=== PATIENT | female | born 1955 | race Caucasian/White ===

== ENCOUNTER → 2018-08-06 | Outpatient (REF) | payer MEDICARE ==
[2018-08-08 00:08] LABS: Lyme Disease IgG/IgM Antibodie <0.91 ISR (0.00-0.90); Lyme Disease IgM Ab Quantitati <0.80 index (0.00-0.79)
== END ==
LOC: M LAB REF 12:15
DX: Z11.59 Encounter for screening for other viral diseases (principal)
CPT/HCPCS: 86617

== ENCOUNTER → 2018-12-23 | Outpatient (REF) | payer MEDICARE ==
[2018-12-26 00:06] LABS: Lyme Disease IgG/IgM Antibodie <0.91 ISR (0.00-0.90); Lyme Disease IgM Ab Quantitati <0.80 index (0.00-0.79)
== END ==
LOC: M LAB REF 16:43
PROVIDERS: ATTEND Family Medicine
DX: R74.0 Nonspecific elevation of levels of transaminase and lactic acid dehydrogenase [LDH] (principal); Z11.59 Encounter for screening for other viral diseases

== ENCOUNTER 2019-03-03 07:46 | Day surgery (SDC) | payer MEDICARE ==
[~2019-03-03] VITALS: Ht 170.2 cm; Wt 82.7 kg
[~2019-03-03 07:46] MED LIST: EZET10TA21 PO; GLIP5TAB20 PO; HYDR12CA PO; METF10004 PO; NS 1,000 ML IV ONE; RAMI1CAP26 PO; TRUL10IN SC
[2019-03-03] MEDS ORDERED: PROPOFOL 200 MG/20 ML VIAL As Ordered ONE ×2 (09:25→09:40)
[2019-03-03] MEDS ORDERED: LIDOCAINE 2% INJ 100 MG/5 ML SDV (FOR ANES.) As Ordered ONE (09:25)
--- NOTE | 2019-03-03 09:49 | ROOR ---
Patient Name: Gianna Castellano Procedure Date: 03/03/2019 9:27 AM Date of : 1955 Age: 63 Room: [facility] Gender: Female Note Status: Finalized Procedure: Total Colonoscopy to Cecum Indications: Screening in patient at increased risk: Colorectal cancer in mother before age 60 Providers: Filippo Marie MD Referring MD: Rudi Reyes MD Requesting Provider: Medicines: Monitored Anesthesia Care Complications: No immediate complications. Procedure: Pre-Anesthesia Assessment: - The heart rate, respiratory rate, oxygen saturations, blood pressure, adequacy of pulmonary ventilation, and response to care were monitored throughout the procedure. The Colonoscope was introduced through the anus and advanced to the cecum, identified by appendiceal orifice and ileocecal valve. The colonoscopy was performed without difficulty. The patient tolerated the procedure well. The quality of the bowel preparation was excellent. Findings: The perianal and digital rectal examinations were normal. Non-bleeding internal hemorrhoids were found during retroflexion. The hemorrhoids were small and Grade I (internal hemorrhoids that do not prolapse). No other significant abnormalities were identified in a careful examination of the remainder of the colon. The exam was otherwise without abnormality on direct and retroflexion views. Impression: - Non-bleeding internal hemorrhoids. - The examination was otherwise normal on direct and retroflexion views. - No specimens collected. - The exam was otherwise normal to the cecum. Recommendation: - Patient has a contact number available for emergencies. The signs and symptoms of potential delayed complications were discussed with the patient. Return to normal activities tomorrow. Written discharge instructions were provided to the patient. - High fiber diet. - Discharge patient to home. - Continue present medications. - Repeat colonoscopy in 5 years for screening purposes. - Return to referring physician. - The findings and recommendations were discussed with the patient's family. Filippo Marie MD Filippo Marie MD 03/03/2019 9:49:28 AM Electronically signed by Filippo Marie MD Number of Addenda: 0 Note Initiated On: 03/03/2019 9:27 AM Estimated Blood Loss: Estimated blood loss: none.
[2019-03-03 10:10] VITALS: BP 143/77
== END 2019-03-03 10:18 | disposition home or self-care (01) ==
LOC: M OPP 07:46
PROVIDERS: ATTEND Internal Medicine Gastroenterology
DX: K64.0 First degree hemorrhoids (principal); Z79.4 Long term (current) use of insulin; Z79.899 Other long term (current) drug therapy; Z12.11 Encounter for screening for malignant neoplasm of colon; A80 Acute poliomyelitis

== ENCOUNTER → 2019-07-20 | Outpatient (CLI) | payer MEDICARE ==
[~2019-07-20] MED LIST changes: +GASTROGRAFIN SOLUTION 30ML (Q9963) As Ordered ONE; +ISOVUE-370 76% 100ML VIAL (Q9967) As Ordered ONE; -NS 1,000 ML IV ONE
[2019-07-20 12:54] LABS: BASO % 0.2 % (0.0-1.0); EOS % 0.5 % (0.0-3.0); HEMATOCRIT 37.2 % (36.0-47.0); LYMPH # 1.8 10^3/uL (1.5-5.0); LYMPH % 20.7 % (24.0-44.0); MEAN CORPUSCULAR HEMOGLOBIN 32.7 pg (27.0-33.0); MEAN CORPUSCULAR HGB CONC 34.9 g/dl (32.0-36.5); MEAN CORPUSCULAR VOLUME 93.5 fl (80.0-96.0); MONO # 0.7 10^3/uL (0.0-0.8); MONO % 7.7 % (0.0-5.0); NEUTROPHILS # 6.1 10^3/uL (1.5-8.5); NEUTROPHILS % 70.6 % (36.0-66.0); PLATELET COUNT, AUTOMATED 218 10^3/uL (150-450); RED BLOOD COUNT 3.98 10^6/uL (4.00-5.40); WHITE BLOOD COUNT 8.7 10^3/uL (4.0-10.0)
[2019-07-20 13:24] LABS: ALBUMIN 4.2 GM/DL (3.2-5.2); ALT/SGPT 51 U/L (12-78); BILIRUBIN,TOTAL 0.6 MG/DL (0.2-1.0); BLOOD UREA NITROGEN 17 MG/DL (7-18); CARBON DIOXIDE LEVEL 28 MEQ/L (21-32); CHLORIDE LEVEL 103 MEQ/L (98-107); CREATININE FOR GFR 0.81 MG/DL (0.55-1.30); GLOMERULAR FILTRATION RATE > 60.0 (>45); GLUCOSE, FASTING 108 MG/DL (70-100); LIPASE 519 U/L (73-393); SODIUM LEVEL 138 MEQ/L (136-145); TOTAL PROTEIN 8.1 GM/DL (6.4-8.2)
--- NOTE | 2019-07-20 14:40 | REP ---
Clinical: Right lower quadrant pain. Technique: Axial contrast enhanced images from the lung bases to the pubic symphysis using oral (per protocol) and 100 ml Isovue 370 intravenous contrast material with coronal and sagittal re-formations. Findings: Focal mucosal thickening of the mid sigmoid colon with surrounding inflammatory stranding centered at inflamed diverticulum is consistent with acute diverticulitis. No evidence for bowel obstruction. No perforation. No drainable collection/abscess. No ascites. Liver, spleen, pancreas, bilateral adrenal glands and kidneys are normal. Pelvis demonstrates partially collapsed bladder and evidence for prior hysterectomy. No ascites. No adenopathy. Abdominal aorta without aneurysm or dissection. Musculoskeletal structures are intact. Impression: Acute sigmoid diverticulitis. No associated bowel obstruction, perforation, or drainable collection/abscess. Electronically Signed by Alfredo Brower MD 07/20/2019 02:31 P
== END ==
LOC: M RAD 11:55
PROVIDERS: ATTEND Physician Assistant
DX: K57.30 Diverticulosis of large intestine without perforation or abscess without bleeding (principal)
CPT/HCPCS: 36415; 74177; 80053; 83690; 85025; Q9963; Q9967

== ENCOUNTER → 2020-07-10 | Outpatient (REF) | payer MEDICARE ==
[~2020-07-10] MED LIST changes: -GASTROGRAFIN SOLUTION 30ML (Q9963) As Ordered ONE; -ISOVUE-370 76% 100ML VIAL (Q9967) As Ordered ONE
== END ==
LOC: M LAB REF 16:15
PROVIDERS: ATTEND Family Medicine
DX: Z01.89 Encounter for other specified special examinations (principal); R94.5 Abnormal results of liver function studies

== ENCOUNTER 2020-08-04 22:50 | Emergency (ER) | payer MEDICARE ==
[~2020-08-04] VITALS: Ht 170.2 cm; Wt 86.3 kg
[2020-08-05] MEDS ORDERED: NS 1,000 ML IV ONE (01:00)
[2020-08-05] MEDS ORDERED: ONDANSETRON 4MG/2ML VIAL IV ONE (01:00)
[2020-08-05] MEDS ORDERED: KETOROLAC 30 MG/ML 1ML VIAL IV ONE (01:00)
[2020-08-05 01:06] LABS: BASO % 0.3 % (0.0-1.0); EOS # 0.1 10^3/uL (0.0-0.5); EOS % 1.6 % (0.0-3.0); HEMATOCRIT 36.7 % (36.0-47.0); HEMOGLOBIN 12.2 g/dl (12.0-15.5); LYMPH # 1.5 10^3/uL (1.5-5.0); LYMPH % 22.1 % (24.0-44.0); MEAN CORPUSCULAR HEMOGLOBIN 31.4 pg (27.0-33.0); MEAN CORPUSCULAR HGB CONC 33.2 g/dl (32.0-36.5); MEAN CORPUSCULAR VOLUME 94.3 fl (80.0-96.0); MONO # 0.6 10^3/uL (0.0-0.8); MONO % 8.3 % (0.0-5.0); NEUTROPHILS # 4.6 10^3/uL (1.5-8.5); NEUTROPHILS % 67.3 % (36.0-66.0); PLATELET COUNT, AUTOMATED 180 10^3/uL (150-450); RED BLOOD COUNT 3.89 10^6/uL (4.00-5.40); WHITE BLOOD COUNT 6.8 10^3/uL (4.0-10.0)
[2020-08-05 01:32] LABS: CALCIUM LEVEL 9.6 MG/DL (8.8-10.2); CREATININE FOR GFR 1.41 MG/DL (0.55-1.30); GLOMERULAR FILTRATION RATE 39.6 (>45); POTASSIUM SERUM 4.1 MEQ/L (3.5-5.1)
--- NOTE | 2020-08-05 01:46 | REPVR ---
PROCEDURE INFORMATION: Exam: CT Abdomen And Pelvis Without Contrast Exam date and time: 08/05/2020 12:47 AM Age: 65 years old Clinical indication: Abdominal pain; Flank; Left; Additional info: Left flank pain/hematuria TECHNIQUE: Imaging protocol: Computed tomography of the abdomen and pelvis without contrast. Radiation optimization: All CT scans at this facility use at least one of these dose optimization techniques: automated exposure control; mA and/or kV adjustment per patient size (includes targeted exams where dose is matched to clinical indication); or iterative reconstruction. COMPARISON: CT ABD PELVIS WITH CONTRAST 07/20/2019 2:23 PM FINDINGS: Liver: Hepatomegaly and steatosis. Gallbladder and bile ducts: Status post cholecystectomy. Pancreas: Normal. No ductal dilation. Spleen: Normal. No splenomegaly. Adrenal glands: Normal. No mass. Kidneys and ureters: Mild left hydroureteronephrosis to the level a 3 mm calculus in the distal left ureter with additional nonobstructing 2-3 mm calculus seen slightly more proximally. Nonspecific bilateral perinephric fat stranding. Punctate nonobstructing left renal calculus. Stomach and bowel: Unremarkable. No obstruction. No mucosal thickening. Appendix: No evidence of appendicitis. Intraperitoneal space: Unremarkable. No free air. No significant fluid collection. Vasculature: Mild atherosclerotic disease of the abdominal aorta. Lymph nodes: Unremarkable. No enlarged lymph nodes. Urinary bladder: Unremarkable as visualized. Reproductive: Status post hysterectomy. Bones/joints: Facet arthropathy the lower lumbar spine. Mild multilevel degenerative disease. Soft tissues: Bilateral fat containing umbilical hernias. IMPRESSION: Mild left hydroureteronephrosis to the level a 3 mm calculus in the distal left ureter with additional nonobstructing 2-3 mm calculus seen slightly more proximally. Electronically signed by: Rey Cm On 08/05/2020 01:45:47 AM
[2020-08-05] MEDS ORDERED: KETO10TAB PO (02:03)
[2020-08-05] MEDS ORDERED: FLOM0.4C39 PO (02:03)
[2020-08-05] MEDS ORDERED: TAMSULOSIN 0.4 MG CAP PO ONE (02:15)
[2020-08-05] MEDS ORDERED: NORCO 5/325MG TABLET (BULK FOR ED) PO ONE (02:15)
[2020-08-05 02:26] VITALS: BP 150/70
== END 2020-08-05 02:29 | disposition home or self-care (01) ==
LOC: M ED 22:50
DX: N20.1 Calculus of ureter (principal); E11.9 Type 2 diabetes mellitus without complications; I10 Essential (primary) hypertension; Z79.84 Long term (current) use of oral hypoglycemic drugs; Z79.899 Other long term (current) drug therapy
CPT/HCPCS: 74176; 80048; 81001; 85025; 96361; 96374; 96375; 99284; J1885; J2405

== ENCOUNTER → 2020-10-04 | Outpatient (REF) | payer MEDICARE ==
[~2020-10-04] MED LIST changes: +FLOM0.4C39 PO; +KETO10TAB PO
[2020-10-04 18:06] LABS: APPEARANCE, URINE HAZY (CLEAR); BACTERIA, URINE AUTO 1+ (NEGATIVE); BILIRUBIN, URINE AUTO NEGATIVE (NEGATIVE); BLOOD, URINE BLOOD NEGATIVE (NEGATIVE); COLOR, URINE AMBER (YELLOW); GLUCOSE, URINE (UA) AUTO 2+ mg/dL (NEGATIVE); KETONE, URINE AUTO TRACE mg/dL (NEGATIVE); LEUKOCYTE ESTERASE, URINE AUTO NEGATIVE (NEGATIVE); MUCUS, URINE SMALL (NEGATIVE); NITRITE, URINE AUTO NEGATIVE (NEGATIVE); PROTEIN, URINE AUTO 1+ mg/dL (NEGATIVE); RBC, URINE AUTO 1 /HPF (0-3); SPECIFIC GRAVITY URINE AUTO 1.024 (1.002-1.035); SQUAMOUS EPITHELIAL CELL UR AU 4 /HPF (0-6); UROBILINOGEN, URINE AUTO 0.2 mg/dL (0.0-2.0); WBC, URINE AUTO 4 /HPF (0-3)
== END ==
LOC: M SMT 17:02
PROVIDERS: ATTEND Nurse Practitioner Family
DX: N20.0 Calculus of kidney (principal)
CPT/HCPCS: 81001; 82365; 87086; G0463

== ENCOUNTER → 2020-12-11 | Outpatient (REF) | payer MEDICARE | LOC: M LAB REF 11:21 | PROVIDERS: ATTEND Family Medicine | DX: R74.01 Elevation of levels of liver transaminase levels (principal) ==

== ENCOUNTER → 2021-03-27 | Outpatient (CLI) | payer MEDICARE ==
--- NOTE | 2021-03-27 15:06 | REP ---
INDICATION: KIDNEY STONE. COMPARISON: Abdomen/pelvis CT without IV contrast dated 08/05/2020. TECHNIQUE: Multiple ultrasonographic images of the kidneys. FINDINGS: The right kidney measures 12.8 x 6.5 x 6.4 cm. The left kidney measures 11.4 x 5.8 x 6.6 cm. Echogenic parenchymal vessels are identified bilaterally. There is no hydronephrosis or hydroureter on the right or the left. There are no solid or cystic renal masses on the right or the left. There are small echogenic foci of bilaterally, nonspecific, vessel artifact versus tiny nonobstructive calculi. Bladder: A right ureteral jet is identified with color Doppler assessment. With color Doppler of the assessment we are unable to identify the left ureteral jet. On the sagittal images of the bladder there appears to be a 9.3 bladder wall polyp posteriorly on the left, versus and edematous distal left ureter. This could not be identified on the transverse images. Additionally, on the transverse images a small echogenic focus is noted within the left UVJ, possibly a tiny calculus. IMPRESSION: Bladder wall polyp posteriorly on the left as described versus edematous distal left ureter containing a small calculus in the left UVJ. No hydronephrosis or hydroureter on the right or the left. Otherwise, negative renal ultrasound. <Electronically signed by Ramón Shirley > 03/27/21 [id number]
== END ==
LOC: M RAD 12:57
PROVIDERS: ATTEND Nurse Practitioner Family
DX: N20.0 Calculus of kidney (principal)

== ENCOUNTER → 2021-04-03 | Outpatient (CLI) | payer MEDICARE ==
--- NOTE | 2021-04-03 12:56 | REPMRS ---
Patient History The patient states she has not had a clinical breast exam in over a year. Family history of colorectal cancer at age 55 in mother. Digital Woman Screen Mammo: April 03, 2021 - Exam #: [id number] Bilateral CC and MLO view(s) were taken. Technologist: Magdalena Rod Technologist Prior study comparison: December 25, 2018, bilateral digital mammo screening bilat, performed at [facility] [employer] [facility]. December 05, 2017, bilateral digital mammo screening bilat, performed at [facility]. February 08, 2014, left breast diagnostic unilateral mammo, performed at [facility]. February 01, 2014, bilateral digital mammo screening bilat, performed at [facility]. FINDINGS: There are scattered fibroglandular densities. The Volpara volumetric breast density category is:B. There has been no change in the appearance of the mammogram from the prior studies. There is a mild amount of scattered fibroglandular density which is fairly symmetric. There is no interval development of dominant mass, architectural distortion, or grouped microcalcification suggestive of malignancy. 3-D tomosynthesis shows no additional findings. Assessment: BI-RADS/ACR category 1 mammogram. Negative Mammogram. Recommendation Routine screening mammogram of both breasts in 1 year (for women over age 40). This patient's [facility] Lifetime Breast Cancer Risk is estimated at 4.7 %. This mammogram was interpreted with the aid of an FDA-approved computer-aided dectection system. Electronically Signed By: Donald Otoole MD 04/03/21 [id number]
== END ==
LOC: M WHC 06:55
PROVIDERS: ATTEND Family Medicine
DX: Z12.31 Encounter for screening mammogram for malignant neoplasm of breast (principal); Z80.0 Family history of malignant neoplasm of digestive organs

== ENCOUNTER → 2021-04-03 | Outpatient (REF) | payer MEDICARE ==
[2021-04-10 18:09] LABS: Ca Ox Monohydrate 10 % (.); Size 4x4 mm (.); Uric Acid 90 % (.)
== END ==
LOC: M SMT 16:55
PROVIDERS: ATTEND Nurse Practitioner Family
DX: Z12.31 Encounter for screening mammogram for malignant neoplasm of breast (principal); Z80.0 Family history of malignant neoplasm of digestive organs; N20.0 Calculus of kidney
CPT/HCPCS: 77063; 77067; 82365; G0463

== ENCOUNTER → 2021-04-10 | Outpatient (REF) | payer MEDICARE ==
[2021-04-10 13:34] LABS: AMORPHOUS SEDIMENT MODERATE (NEGATIVE); APPEARANCE, URINE TURBID (CLEAR); BACTERIA, URINE AUTO NEGATIVE (NEGATIVE); BILIRUBIN, URINE AUTO NEGATIVE (NEGATIVE); BLOOD, URINE BLOOD NEGATIVE (NEGATIVE); COLOR, URINE YELLOW (YELLOW); GLUCOSE, URINE (UA) AUTO 2+ mg/dL (NEGATIVE); KETONE, URINE AUTO TRACE mg/dL (NEGATIVE); LEUKOCYTE ESTERASE, URINE AUTO TRACE (NEGATIVE); NITRITE, URINE AUTO NEGATIVE (NEGATIVE); PROTEIN, URINE AUTO NEGATIVE (NEGATIVE); RBC, URINE AUTO 1 /HPF (0-3); SPECIFIC GRAVITY URINE AUTO 1.021 (1.002-1.035); SQUAMOUS EPITHELIAL CELL UR AU 4 /HPF (0-6); UROBILINOGEN, URINE AUTO 0.2 mg/dL (0.0-2.0); WBC, URINE AUTO 0 /HPF (0-3)
== END ==
LOC: M SMT 12:34
PROVIDERS: ATTEND Nurse Practitioner Family
DX: N20.0 Calculus of kidney (principal)

== ENCOUNTER → 2021-04-13 | Outpatient (REF) | payer MEDICARE | LOC: M LAB REF 11:46 | PROVIDERS: ATTEND Family Medicine | DX: I12.9 Hypertensive chronic kidney disease with stage 1 through stage 4 chronic kidney disease, or unspecified chronic kidney disease (principal) ==

== ENCOUNTER 2021-04-18 13:34 | Emergency (ER) | payer MEDICARE ==
[~2021-04-18] VITALS: Ht 170.2 cm; Wt 85.0 kg
[2021-04-18 13:35] VITALS: BP 198/97
== END 2021-04-18 16:20 | disposition left against medical advice (07) ==
LOC: M ED 13:34
DX: Z53.21 Procedure and treatment not carried out due to patient leaving prior to being seen by health care provider (principal)

== ENCOUNTER → 2021-05-04 | Outpatient (CLI) | payer MEDICARE | LOC: M PLALAB 10:24 | PROVIDERS: ATTEND Urology | DX: N32.9 Bladder disorder, unspecified (principal) ==

== ENCOUNTER → 2021-05-14 | Outpatient (CLI) | payer MEDICARE ==
--- NOTE | 2021-05-14 13:12 | REP ---
INDICATION: RENAL CALCULI. COMPARISON: 08/05/2020 the latest prior TECHNIQUE: Standard helical technique without intravenous contrast. Stone protocol utilized. FINDINGS: The lung bases are clear and unchanged. In an upper pole calyx of the left kidney there is a 2 mm sized calcification. This represents a change from the prior exam. There is no obstructive uropathy. There are no ureteroliths. There is no hydronephrosis. There is no right-sided nephroureterolithiasis or hydronephrosis. There are multiple pelvic phleboliths status quo. There are no urinary bladder calcifications. Limited evaluation of the bowel loops and the mesenteries show no gross abnormalities or significant changes. Limited evaluation of the abdominal aorta and para-aortic regions show no gross abnormalities or significant changes. Limited evaluation of the solid intra-abdominal organs show no gross abnormalities or significant changes. Limited evaluation of the pancreas and adrenal glands show them to be stable. Surgical clips are again seen in the gallbladder fossa from previous cholecystectomy. There is no free fluid or free air. There is no evidence of a mass or adenopathy. Bone window technique throughout the exam shows no significant change in appearance of the osseous structures. IMPRESSION: There is a single tiny nonobstructing left nephrolith as described above. The examination is otherwise unremarkable <Electronically signed by Edis Dill > 05/14/21 [id number]
== END ==
LOC: M RAD 11:24
PROVIDERS: ATTEND Urology
DX: N20.0 Calculus of kidney (principal)

== ENCOUNTER → 2021-06-05 | Outpatient (CLI) | payer MEDICARE ==
[2021-06-05 17:50] LABS: CALCIUM LEVEL 10.9 MG/DL (8.8-10.2); CREATININE FOR GFR 1.28 MG/DL (0.55-1.30); GLOMERULAR FILTRATION RATE 44.1 (>45); POTASSIUM SERUM 4.7 MEQ/L (3.5-5.1)
== END ==
LOC: M PLALAB 13:51
PROVIDERS: ATTEND Urology
DX: N20.0 Calculus of kidney (principal)

== ENCOUNTER → 2021-06-07 | Outpatient (CLI) | payer MEDICARE ==
[2021-06-07 13:22] LABS: CALCIUM LEVEL 10.3 MG/DL (8.8-10.2)
[2021-06-07 13:34] LABS: PTH INTACT 23.6 PG/ML (18.5-88.0)
== END ==
LOC: M PLALAB 08:59
PROVIDERS: ATTEND Urology
DX: N20.0 Calculus of kidney (principal)

== ENCOUNTER → 2022-06-28 | Outpatient (CLI) | payer MEDICARE | LOC: M WHC 14:24 | PROVIDERS: ATTEND Family Medicine | DX: Z12.31 Encounter for screening mammogram for malignant neoplasm of breast (principal) ==

== ENCOUNTER → 2022-11-15 | Outpatient (REF) | payer MEDICARE | LOC: M LAB REF 12:10 | PROVIDERS: ATTEND Family Medicine | DX: I12.9 Hypertensive chronic kidney disease with stage 1 through stage 4 chronic kidney disease, or unspecified chronic kidney disease (principal) ==

== ENCOUNTER → 2023-04-24 | Outpatient (REF) | payer MEDICARE | LOC: M LAB REF 12:39 | PROVIDERS: ATTEND Family Medicine | DX: I12.9 Hypertensive chronic kidney disease with stage 1 through stage 4 chronic kidney disease, or unspecified chronic kidney disease (principal) ==

== ENCOUNTER → 2023-12-24 | Outpatient (REF) | payer MEDICARE | LOC: M SFHCADAM 09:23 | PROVIDERS: ATTEND Urology | DX: N20.0 Calculus of kidney (principal) ==

== ENCOUNTER → 2023-12-25 | Outpatient (CLI) | payer MEDICARE ==
[~2023-12-25] MED LIST changes: +RAMI10CA64 PO; -RAMI1CAP26 PO
== END ==
LOC: M WHC 12:55
PROVIDERS: ATTEND Family Medicine
DX: Z12.31 Encounter for screening mammogram for malignant neoplasm of breast (principal)

== ENCOUNTER 2024-05-12 10:57 | Day surgery (SDC) | payer MEDICARE ==
[~2024-05-12] VITALS: Ht 170.2 cm; Wt 81.8 kg
[~2024-05-12 10:57] MED LIST changes: +ACID10TA14 PO; +AMLO10TA PO; +DULA3PEN; +ECOT81TA5 PO; +POTA4.25 PO
[2024-05-12] MEDS: NS 1,000 ML IV ONE (11:20)
[2024-05-12] MEDS ORDERED: propofoL 200 MG/20 ML VIAL As Ordered ONE (12:09)
[2024-05-12 12:25] VITALS: TEMP 98.1
[2024-05-12 12:50] VITALS: BP 141/74; O2SAT 99
== END 2024-05-12 12:55 | disposition home or self-care (01) ==
LOC: M OPP 10:57
PROVIDERS: ATTEND Internal Medicine Gastroenterology
DX: Z12.11 Encounter for screening for malignant neoplasm of colon (principal); Z80.0 Family history of malignant neoplasm of digestive organs; K64.0 First degree hemorrhoids; K57.30 Diverticulosis of large intestine without perforation or abscess without bleeding; E11.9 Type 2 diabetes mellitus without complications; I10 Essential (primary) hypertension; Z79.02 Long term (current) use of antithrombotics/antiplatelets; Z79.84 Long term (current) use of oral hypoglycemic drugs; Z79.899 Other long term (current) drug therapy

== ENCOUNTER → 2024-10-28 | Outpatient (REF) | payer MEDICARE ==
[~2024-10-28] MED LIST changes: +GLIP-318 PO; -GLIP5TAB20 PO
== END ==
LOC: M LAB REF 13:09
PROVIDERS: ATTEND Family Medicine
DX: N18.30 Chronic kidney disease, stage 3 unspecified (principal)

== ENCOUNTER → 2025-05-04 | Outpatient (CLI) | payer MEDICARE ==
[~2025-05-04] MED LIST changes: +AMLO-751 PO; -AMLO10TA PO; -EZET10TA21 PO; +EZET10TA57 PO; -FLOM0.4C39 PO; +HYDR12.510 PO; -HYDR12CA PO; +TAMS-18 PO
== END ==
LOC: M WUC 10:58
PROVIDERS: ATTEND Family Medicine
DX: M17.11 Unilateral primary osteoarthritis, right knee (principal); M25.561 Pain in right knee; M25.461 Effusion, right knee

== ENCOUNTER → 2025-06-15 | Outpatient (CLI) | payer MEDICARE | LOC: M WHC 07:45 | PROVIDERS: ATTEND Family Medicine | DX: Z12.31 Encounter for screening mammogram for malignant neoplasm of breast (principal); R92.313 Mammographic fatty tissue density, bilateral breasts ==